=== PATIENT | female | born 1950 | race Caucasian/White ===

== ENCOUNTER 2025-02-23 17:07 | Inpatient (IN) | payer MEDICARE, OTHER ==
[~2025-02-23] VITALS: Ht 165.1 cm; Wt 82.3 kg
[2025-02-23] MEDS: IV NS 0.9% 1,000 ML BAG IV ONE ×2 (17:20→18:30)
[2025-02-23 17:50] LABS: PLATELET COUNT (AUTO) 192 K/uL (150-450); RED BLOOD CELL COUNT(AUTO) 4.57 MIL/uL (4.0-5.2); RED CELL DISTRIBUTION WIDTH 14.1 % (11.5-15.0); WHITE BLOOD COUNT (AUTO) 7.2 K/uL (4.3-11.0)
[2025-02-23 18:06] LABS: CALCIUM, SERUM 8.9 mg/dL (8.5-10.1); CREATININE 2.3 mg/dL (0.6-1.3); SODIUM SERUM 142 mmol/L (136-145); UREA NITROGEN, BLOOD 21 mg/dL (7-18)
[2025-02-23 18:13] LABS: LACTIC ACID 2.0 mmol/L (0.4-2.0)
[2025-02-23 18:17] LABS: NT-PRO BNP 530 pg/mL (0-125)
[2025-02-23 18:18] LABS: ASPARTATE AMINOTRANSFERASE 20 U/L (15-37); TOTAL PROTEIN, SERUM 7.1 g/dL (6.4-8.2)
[2025-02-23] MEDS ORDERED: PIPERACI/TAZO 3.375GM/D5W 50ML PB IV ONE (18:26)
[2025-02-23] MEDS: PIPERACILLIN /TAZOBACTAM 3.375 G in IV D5W 50 ML IV ONE (18:45)
[2025-02-23 18:48] LABS: CREATINE KINASE, TOTAL 51.0 U/L (26-192)
[2025-02-23 19:10] LABS: APPEARANCE,URINE CLOUDY (CLEAR); BLOOD, URINE TRACE-INTA Ery/uL (NEGATIVE); LEUKOCYTE ESTERASE ,URINE 1+ (NEGATIVE); NITRITE, URINE POSITIVE (NEGATIVE); UGLUCOSE NEGATIVE (NEGATIVE)
[2025-02-23 19:13] LABS: ADD URINE CULTURE YES; SQUAMOUS EPITHELIAL CELL,UR 0-2 /HPF (None Seen)
[2025-02-23 19:14] LABS: HYALINE CASTS, URINE Rare /LPF (None Seen)
[2025-02-23] MEDS ORDERED: ASPI-1420 PO (19:17)
[2025-02-23] MEDS ORDERED: GABA300C PO (19:17)
[2025-02-23] MEDS ORDERED: DONE5TAB34 PO (19:17)
[2025-02-23] MEDS ORDERED: TRAM50TA2 PO (19:17)
[2025-02-23] MEDS ORDERED: LORA-258 PO (19:17)
[2025-02-23] MEDS ORDERED: ATOR20TA PO (19:17)
[2025-02-23] MEDS ORDERED: CHOL200059 PO (19:17)
[2025-02-23] MEDS ORDERED: ASCO100058 PO (19:17)
[2025-02-23] MEDS ORDERED: LOSA50TA39 PO (19:17)
[2025-02-23] MEDS ORDERED: CYAN-51 PO (19:17)
[2025-02-23] MEDS ORDERED: CLON0.1T PO (19:17)
[2025-02-23] MEDS ORDERED: TRAMADOL HCL 50 MG TABLET PO PRN (20:00)
[2025-02-23] MEDS ORDERED: MAG HYDROX/AL HYDROX/SIMETH 30 ML UDC PO PRN (20:00)
[2025-02-23] MEDS ORDERED: ACETAMINOPHEN 325 MG TABLET PO PRN (20:00)
[2025-02-23] MEDS ORDERED: Z GUARD REMEDY 4 OZ OINT TP PRN (20:00)
[2025-02-23] MEDS ORDERED: ONDANSETRON HCL/PF 4 MG/2 ML VIAL IVP PRN (20:00)
[2025-02-23] MEDS ORDERED: MAGNESIUM HYDROXIDE 30 ML UDC PO PRN (20:00)
[2025-02-23] MEDS ORDERED: DOSING PER PHARMACY-ZOSYN IV 1 EA EA XX PRN (20:00)
[2025-02-23] MEDS ORDERED: LORAZEPAM 1 MG TABLET PO PRN (20:30)
[2025-02-23] MEDS ORDERED: CLONIDINE HCL 0.1 MG TABLET PO PRN (20:30)
[2025-02-23] MEDS ORDERED: GABAPENTIN 300 MG CAPSULE PO SCH (22:00)
[2025-02-23 22:40] VITALS: BP 116/66; TEMP 97.9; O2SAT 95
[2025-02-23 23:00] VITALS: BP_SYST 116; BP_SYST 129; BP_SYST 151; BP_DIAS 66; BP_DIAS 85; BP_DIAS 90; TEMP 97.9; O2SAT 95
[2025-02-23] MEDS: ATORVASTATIN 10 MG TABLET PO SCH (23:11)
[2025-02-23] MEDS: GABAPENTIN 100 MG CAPSULE PO SCH (23:11)
[2025-02-24] VITALS (7 sets, daily range): BP systolic 106–131; BP diastolic 56–87; TEMP 97.5–98.1; O2SAT 97–100
[2025-02-24] MEDS: IV NS 0.9% 1,000 ML IV PRN (00:24)
[2025-02-24] MEDS ORDERED: PIPERACI/TAZO 3.375GM/D5W 50ML PB IV ONE (06:16)
[2025-02-24] MEDS: PIPERACILLIN /TAZOBACTAM 2.25 G in IV D5W 50 ML IV SCH (06:25)
[2025-02-24] MEDS ORDERED: ZOSYN IVPB 3.375 G in IV D5W 50ml IV ONE (07:00)
[2025-02-24] MEDS: ASCORBIC ACID 500 MG TABLET PO SCH (08:19)
[2025-02-24] MEDS: CHOLECALCIFEROL 1,000 UNIT TABLET (VIT D3) PO SCH (08:19)
[2025-02-24] MEDS: DONEPEZIL 5 MG TABLET PO SCH (08:19)
[2025-02-24] MEDS: ASPIRIN EC 81 MG TABLET.DR PO SCH (08:19)
[2025-02-24] MEDS: CYANOCOBALAMIN 500 MCG TABLET PO SCH (08:20)
[2025-02-24] MEDS: PANTOPRAZOLE 40 MG TABLET.DR PO SCH (08:20)
[2025-02-24 08:30] LABS: PLATELET COUNT (AUTO) 143 K/uL (150-450); RED BLOOD CELL COUNT(AUTO) 4.02 MIL/uL (4.0-5.2); RED CELL DISTRIBUTION WIDTH 14.3 % (11.5-15.0); WHITE BLOOD COUNT (AUTO) 6.6 K/uL (4.3-11.0)
[2025-02-24 08:43] LABS: CALCIUM, SERUM 8.5 mg/dL (8.5-10.1); CREATININE 1.3 mg/dL (0.6-1.3); PHOSPHORUS 4.6 mg/dL (2.5-4.9); SODIUM SERUM 142.0 mmol/L (136-145); UREA NITROGEN, BLOOD 23.0 mg/dL (7-18)
[2025-02-24 08:55] LABS: LDL 122.0 mg/dL (0-99)
[2025-02-24] MEDS ORDERED: PIPERACILLIN /TAZOBACTAM 2.25 G in IV D5W 50 ML IV SCH (12:00)
[2025-02-24] MEDS: CEPHALEXIN MONOHYDRATE 500 MG CAPSULE PO SCH (16:05)
[2025-02-24 18:16] LABS: CREATININE, URINE 81.7 MG/DL (30.0-125.0); URINE SODIUM, RANDOM 34.0 mmol/l (40-220); URINE TOTAL PROTEIN 10.9 mg/dL (0-11.9)
[2025-02-25 00:45] VITALS: BP 132/84; TEMP 97.3; O2SAT 98
[2025-02-25 04:39] VITALS: BP 118/61; TEMP 97.9; O2SAT 97
[2025-02-25 07:12] LABS: PLATELET COUNT (AUTO) 145 K/uL (150-450); RED BLOOD CELL COUNT(AUTO) 3.80 MIL/uL (4.0-5.2); RED CELL DISTRIBUTION WIDTH 14.2 % (11.5-15.0); WHITE BLOOD COUNT (AUTO) 5.7 K/uL (4.3-11.0)
[2025-02-25 07:29] LABS: ASPARTATE AMINOTRANSFERASE 15.0 U/L (15-37); CALCIUM, SERUM 8.2 mg/dL (8.5-10.1); CREATINE KINASE, TOTAL 37.0 U/L (26-192); CREATININE 1.1 mg/dL (0.6-1.3); PHOSPHORUS 4.1 mg/dL (2.5-4.9); SODIUM SERUM 146.0 mmol/L (136-145); TOTAL PROTEIN, SERUM 5.7 g/dL (6.4-8.2); UREA NITROGEN, BLOOD 22.0 mg/dL (7-18)
[2025-02-25 08:47] VITALS: BP 134/74; TEMP 98.2; O2SAT 97
[2025-02-25 09:04] VITALS: BP_SYST 131; BP_SYST 143; BP_SYST 156; BP_DIAS 73; BP_DIAS 79; BP_DIAS 81; TEMP 97; O2SAT 95
[2025-02-25] MEDS ORDERED: CEPH-570 PO (14:09)
[2025-02-25 15:51] VITALS: BP 148/78; TEMP 98; O2SAT 100
[2025-02-27 06:10] LABS: PTH, INTACT 24 pg/mL (15-65)
== END 2025-02-25 18:12 | disposition home or self-care (01) | DRG 871 ==
LOC: ER 17:09 → TELE 21:36
PROVIDERS: ADMIT Nurse Practitioner Acute Care; ATTEND Nurse Practitioner Acute Care
DX: A41.9 Sepsis, unspecified organism (principal); N17.0 Acute kidney failure with tubular necrosis; N39.0 Urinary tract infection, site not specified; E87.20 Acidosis, unspecified; F03.94 Unspecified dementia, unspecified severity, with anxiety; E86.0 Dehydration; I12.9 Hypertensive chronic kidney disease with stage 1 through stage 4 chronic kidney disease, or unspecified chronic kidney disease; N18.9 Chronic kidney disease, unspecified; B96.89 Other specified bacterial agents as the cause of diseases classified elsewhere; E78.5 Hyperlipidemia, unspecified; J45.909 Unspecified asthma, uncomplicated; G62.9 Polyneuropathy, unspecified; M79.7 Fibromyalgia; R00.1 Bradycardia, unspecified; T44.1X5A Adverse effect of other parasympathomimetics [cholinergics], initial encounter; Y92.9 Unspecified place or not applicable
CPT/HCPCS: 36415; 71045-TC; 80048-TC; 80053-TC; 80061-TC; 80076-TC; 81001; 82550-TC; 82570-TC; 83605-TC; 83735-TC; 83880; 83970; 84100-TC; 84155; 84165; 84300-TC; 84443-TC; 84484-TC; 85025-TC; 87040-TC; 87086-TC; 87186-TC; 93307-TC; 97112-TC; 97116-TC; 97530-TC; 97535-TC; A4223; G0378; J2543; J7030; J7060